=== PATIENT | male | born 1945 | race Caucasian/White ===

== ENCOUNTER 2020-11-29 08:26 | Outpatient (CLI) | payer MEDICARE, MEDICAID, SELFPAY | END 2020-11-29 08:27 | disposition home or self-care (01) | LOC: WOUND 08:49 | PROVIDERS: Visit Provider Thoracic Surgery (Cardiothoracic Vascular Surgery) | DX: L97.522 Non-pressure chronic ulcer of other part of left foot with fat layer exposed (principal); F17.210 Nicotine dependence, cigarettes, uncomplicated | CPT/HCPCS: 11042; 73630; G0463 ==

== ENCOUNTER 2020-11-29 10:28 | Outpatient (CLI) | payer MEDICARE, MEDICAID, SELFPAY ==
--- NOTE | 2020-11-29 10:40 | XR_ITS ---
WS: [id number] Left foot, 3 views, 11/29/2020 Clinical Data: NON PRESSURE CHRONIC ULCER Comparison: None. Findings: No fractures or dislocations are seen. No bone destruction or erosion is noted. The joint spaces and soft tissues are normal. No fistulous tract is seen adjacent to the left great toe. There is a large plantar spur and a small Achilles spur. There are calcifications and small vessels. XR/XR foot LT min 3V* [id number] Impression: Negative left foot.
== END 2020-11-29 10:29 | disposition home or self-care (01) ==
PROVIDERS: PCP Nurse Practitioner Family; Visit Provider Thoracic Surgery (Cardiothoracic Vascular Surgery)
DX: L97.522 Non-pressure chronic ulcer of other part of left foot with fat layer exposed (principal)
CPT/HCPCS: 73630

== ENCOUNTER 2020-12-06 08:39 | Outpatient (CLI) | payer MEDICARE, MEDICAID, SELFPAY | END 2020-12-06 08:40 | disposition home or self-care (01) | LOC: WOUND 08:40 | PROVIDERS: PCP Nurse Practitioner Family; Visit Provider Thoracic Surgery (Cardiothoracic Vascular Surgery) | DX: E11.621 Type 2 diabetes mellitus with foot ulcer (principal); L97.522 Non-pressure chronic ulcer of other part of left foot with fat layer exposed; F17.210 Nicotine dependence, cigarettes, uncomplicated | CPT/HCPCS: 11042 ==

== ENCOUNTER 2020-12-13 08:50 | Outpatient (CLI) | payer MEDICARE, MEDICAID, SELFPAY | END 2020-12-13 08:51 | disposition home or self-care (01) | LOC: WOUND 08:51 | PROVIDERS: PCP Nurse Practitioner Family; Visit Provider Thoracic Surgery (Cardiothoracic Vascular Surgery) | DX: L97.522 Non-pressure chronic ulcer of other part of left foot with fat layer exposed (principal); F17.210 Nicotine dependence, cigarettes, uncomplicated | CPT/HCPCS: 11042 ==

== ENCOUNTER 2020-12-14 08:28 | Outpatient (CLI) | payer MEDICARE, MEDICAID, SELFPAY ==
--- NOTE | 2020-12-14 08:38 | USCV_ITS ---
Viktor Trujillo Age: 75 Gender: M : 1945 Exam Date: 12/14/2020 08:49 Ordering Phys: Vince Oliveira MD (Andy) ([email or web address]) Technologist: KAYLA Exam Location: [facility] [place] Indication: ULCER Risk Factors: Previous Vascular Surgery: RIGHT LEFT Waveform Velocity (cm/s) Velocity (cm/s) Waveform Iliac Prox Triphasic 100.4 Iliac Mid 97.8 Triphasic Iliac Distal 93.0 Monophasic PICKER 91.4 Monophasic SFA Prox 67.5 Monophasic SFA Mid 71.8 Monophasic SFA Dist Monophasic 70.1 POP 47.9 Monophasic GRAVEL WEIGHER 106.0 Monophasic DPA 36.8 Monophasic PEGGY 0.8 FINDINGS Abnormal resting PEGGY 0.8 on the left side. Monophasic and continuous waveforms in the posterior tibial and dorsalis pedis artery on the left side Moderate diffuse plaques in the iliac, femoral and popliteal arteries on the left side CONCLUSIONS 1. Abnormal resting PEGGY on the left side, suggestive of mild peripheral artery disease 2. Abnormal Doppler waveforms in the infrapopliteal vessels, suggestive of collateral filling Consider CTA or peripheral angiogram to better evaluate the peripheral arteries,, if clinically indicated Dr Humza Huertas MD [facility] (Electronically Signed) Final Date: 14 December 2020 10:11 S
== END 2020-12-14 08:29 | disposition home or self-care (01) ==
LOC: US 08:29
PROVIDERS: PCP Nurse Practitioner Family; Visit Provider Thoracic Surgery (Cardiothoracic Vascular Surgery)
DX: L97.522 Non-pressure chronic ulcer of other part of left foot with fat layer exposed (principal)
CPT/HCPCS: 93926

== ENCOUNTER 2020-12-20 09:01 | Outpatient (CLI) | payer MEDICARE, MEDICAID, SELFPAY | END 2020-12-20 09:02 | disposition home or self-care (01) | LOC: WOUND 09:02 | PROVIDERS: PCP Nurse Practitioner Family; Visit Provider Thoracic Surgery (Cardiothoracic Vascular Surgery) | DX: L97.522 Non-pressure chronic ulcer of other part of left foot with fat layer exposed (principal); F17.210 Nicotine dependence, cigarettes, uncomplicated | CPT/HCPCS: 11042 ==

== ENCOUNTER 2020-12-27 08:32 | Outpatient (CLI) | payer MEDICARE, MEDICAID, SELFPAY | END 2020-12-27 08:33 | disposition home or self-care (01) | LOC: WOUND 08:33 | PROVIDERS: PCP Nurse Practitioner Family; Visit Provider Thoracic Surgery (Cardiothoracic Vascular Surgery) | DX: L97.522 Non-pressure chronic ulcer of other part of left foot with fat layer exposed (principal); F17.210 Nicotine dependence, cigarettes, uncomplicated | CPT/HCPCS: 11042 ==

== ENCOUNTER 2021-01-10 08:47 | Outpatient (CLI) | payer MEDICARE, MEDICAID, SELFPAY | END 2021-01-10 08:48 | disposition home or self-care (01) | LOC: WOUND 08:48 | PROVIDERS: PCP Nurse Practitioner Family; Visit Provider Thoracic Surgery (Cardiothoracic Vascular Surgery) | DX: L97.522 Non-pressure chronic ulcer of other part of left foot with fat layer exposed (principal); F17.210 Nicotine dependence, cigarettes, uncomplicated | CPT/HCPCS: 11042 ==

== ENCOUNTER 2021-01-17 09:10 | Outpatient (CLI) | payer MEDICARE, MEDICAID, SELFPAY | END 2021-01-17 09:11 | disposition home or self-care (01) | LOC: WOUND 09:11 | PROVIDERS: PCP Nurse Practitioner Family; Visit Provider Nurse Practitioner Family | DX: L97.522 Non-pressure chronic ulcer of other part of left foot with fat layer exposed (principal); F17.210 Nicotine dependence, cigarettes, uncomplicated | CPT/HCPCS: 11042; 87070; 87077; 87176; 87186; 87205 ==

== ENCOUNTER → 2021-01-27 10:53 | Outpatient (BNVA) | payer MEDICARE, MEDICAID, SELFPAY | PROVIDERS: Visit Provider Internal Medicine | DX: Z01.818 Encounter for other preprocedural examination (principal); Z20.822 Contact with and (suspected) exposure to COVID-19; I74.09 Other arterial embolism and thrombosis of abdominal aorta | CPT/HCPCS: 80048; 85025; 85610; 87635 ==

== ENCOUNTER 2021-01-31 08:25 | Outpatient (CLI) | payer MEDICARE, MEDICAID, SELFPAY ==
[2021-01-31] VITALS (45 sets, daily range): BP systolic 110–165; BP diastolic 61–106; PULSE 39–65; RESP 11–54; TEMP 36.1–36.9; O2SAT 93–98; BMI 30.5
--- NOTE | 2021-01-31 08:57 | XACV_ITS ---
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 Lower Extremity Diagnostic Findings Indication: Severe lifestyle limiting claudication/nonhealing ulcer. Left common iliac artery: Patent Left external iliac artery: Patent Left internal iliac artery: Patent Left common femoral artery: Patent Left profunda femoral artery: Patent Left SFA: Mid to distal segment has severe 80 to 90% calcified stenosis Left popliteal artery: Patent TP segment: Patent Anterior tibial artery: Occluded with collateral filling Posterior tibial artery: Patent Peroneal artery: Diffusely diseased. Right common iliac artery: Patent Right external iliac artery: Patent Right internal iliac artery: Patent Right common femoral artery: Patent Right profunda femoral artery: Patent Right SFA: Patent Right popliteal artery: Patent TP segment: Patent Diffuse narrowing seen in the below the knee vessels. o critical stenosis noted. Lower Extremity Interventional Findings Procedure detail: We obtained access in the right common femoral artery. Sheath was exchanged to long 6 Upper Sorbian sheath. Using Glidewire, the SFA stenosis was crossed. With seeker support catheter wire was exchanged to a Viper wire. Orbital arthrectomy was performed. This was followed by balloon angioplasty with 6.0 x 40 mm balloon. At this time we obtained final angiogram that showed excellent 2 vessel expansion and no residual stenosis. 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 Conclusions Severe mid to distal left SFA stenosis s/p successful revascularization with orbital arthrectomy and balloon angioplasty. Recommendations Transferred to CSU. Aspirin and Plavix. Statin therapy. Outpatient cardiology follow-up in 4 weeks. Hemodynamic Data Phase:Rest AO : 143.0 / 77.0 ( 105.0 ) @ 8:06:00 AM 132.0 / 72.0 ( 100.0 ) @ 8:32:00 AM 137.0 / 66.0 ( 92.0 ) @ 8:35:00 AM Access Site Site: Right Femoral artery Sheath Size: 6 Fr Hemost... Method: Suture Hemost... Success: Successful Procedure Details Findings Procedure Consent Obtained. Admit Source: Out Patient. Pre-Procedure Time Out. Identified patient by full name and date of as verbalized by the patient/guarantor. Does the consent match the physician's order: Yes. Accurate & Complete Informed Consent: Yes. Inpatient/Outpatient History & Physical on Chart: Yes. Visualize and Verify Site with Patient/Guarantor: N/A. Relevant Radiology Images available: N/A. Pre-op teaching completed and patient verbalized understanding. The risks, benefits, and alternatives of sedation and/or procedure were discussed by physician. The patient agrees to continue. Procedure started. Current diagnosis: PVD. PERRLA. Strong, equal hand grey washer bilaterally. Lungs clear x 5 lobes. IV Site on Arrival: 20 gauge in the left wrist. IV Fluids: 0.9% NaCl at KVO. 0 mL infused prior to landscape and yardwork laborer. Pre Procedural Pulses: bilateral dorsalis pedis was Doppled. Pre Procedural Pulses: bilateral posterior tibial was Doppled. Oxygen started at 2liters/min via nasal canula. right groin was prepped with chloroprep then draped in the usual sterile fashion. left groin was prepped with chloroprep then draped in the usual sterile fashion. Baseline sample Acquired. HR: 74 BPM. Physician notified. Physician arrived. Physician scrubbed in. Time out performed with cath team. Lidocaine 1% infiltrated to the right groin. Arterial access obtained with micropuncture set. A 5FrFr UF catheter in over wire. Abdominal aortogram performed in ENRIQUE @ 10 mL/sec for a total of 30 mL. Glidewire inserted. Glidewire removed. Left superficial femoral selected and arteriogram with runoff performed @ 10 mL/sec for a total of 30 mL. Glidewire inserted. UF catheter removed. 6Fr short sheath exchanged for 6Fr Flexor sheath. Seeker catheter inserted over the Glidewire. Glidewire removed. Hand injection through the sheath. Viper wire inserted. Orbital atherectomy device inserted. Orbial atherectomy performed to Mid SFA. Orbital atherectomy device removed. Viper wire removed. Seeker and [place] wire inserted. Inflation number : 1 A AB ARMADA 35 OTW [id number] was prepped and advanced across the Mid Superficial Femoral, Left , then inflated to 6 MARYLOU for 2:00 seconds. Balloon inserted over the wire to the superficial femoral. Balloon out. Results checked. 6Fr Flexor exchanged for 6Fr short sheath. Sheath injected in Right common femoral artery and runoff performed. A Suture was successful obtaining hemostatsis at the Right Femoral artery insertion site. Post Procedure: Pulses reassessed and unchanged. Post-op diagnosis: Severe Distal SFA stenosis. PERRLA. Strong, equal hand grey washer bilaterally. No VTE prophylaxis required. Medication's Wasted: Lidocaine 1% = 10 mL. Medication's Wasted: Nitro = 49 mg. Medication's Wasted: Heparin = 1000 u. Total IV fluids: 120 mL. Complications: none. Estimated blood loss: 5mL-10mL. Procedure completed. Patient transferred by bed to 1st floor. Vital chart was stopped. Procedure Medications Start: 9:52 AM Stop: 9:52 AM Medication: Versed Amount: 1 mg Route: I.V. Start: 9:52 AM Stop: 9:52 AM Medication: Fentanyl Amount: 50 mcg Route: I.V. Start: 10:00 AM Stop: 10:00 AM Medication: Versed Amount: 1 mg Route: I.V. Start: 10:00 AM Stop: 10:00 AM Medication: Fentanyl Amount: 50 mcg Route: I.V. Start: 10:03 AM Stop: 10:03 AM Medication: Versed Amount: 1 mg Route: I.V. Start: 10:03 AM Stop: 10:03 AM Medication: Fentanyl Amount: 50 mcg Route: I.V. Start: 10:22 AM Stop: 10:22 AM Medication: Heparin Amount: 5000 units Route: I.V. Start: 10:30 AM Stop: 10:30 AM Medication: Fentanyl Amount: 50 mcg Route: I.V. Start: 10:30 AM Stop: 10:30 AM Medication: Versed Amount: 1 mg Route: I.V. I, the attending physician, have reviewed and verified all procedure medications. Yes, all medications given per verbal order History/Risk Factors Hypertension: Yes Dyslipidemia: No Peripheral Arterial Disease (PAD): Yes Obesity: Yes Renal Disease: No Tobacco Use: Current/Recent(w/in 1 year) Prior Interventions PCI: No CABG: No Valve Surgery: No Report Signatures Finalized by Daljit Bateman MD on 02/15/2021 08:09 AM
--- NOTE | 2021-01-31 09:45 | W.PM.OPSUD ---
Surgery/Procedure H&P Update DATE OF PROCEDURE: January 31, 2021 DATE H&P PERFORMED: 01/09/21 H&P UPDATE INFORMATION: I have reviewed H&P completed within last 30 days, I have examined patient prior to procedure and No changes to prior documentation PREOP DIAGNOSIS: Non healing ulcer/Peripheral artery disease PRIMARY INDICATION FOR PROCEDURE: Non healing ulcer/peripheral artery disease PLANNED PROCEDURE: Operation Date: 01/31/21 08:30 Proposed Procedures p Peripheral Diagnostic(Bilateral) - Daljit Bateman M.D Possible percutaneous coronary intervention PATIENT REASSESSED PRIOR TO SEDATION, WITH NO CHANGE NOTED: Yes PHYSICAL EXAM: alert, oriented x 3, clear to auscultation bilaterally and regular rate & rhythm AIRWAY EVAL/ANESTHESIA PLAN: ASA III, Monitored Anesthesia, Local Anesthesia, Risks, benefits & alternatives of sedation and/or procedure discussed and Patient agrees to continue as planned
[2021-01-31] MEDS: sodium chloride 0.9% 1,000 ML 75 ML IV (11:15)
--- NOTE | 2021-01-31 11:28 | ECG_ITS ---
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 Measurements Intervals [place] Rate: 40 P: 57 MD: 194 QRS: -27 QRSD: 99 T: -6 QT: 498 QTc: 408 Interpretive Statements SINUS BRADYCARDIA BORDERLINE LEFT AXIS DEVIATION [QRS AXIS < -20] NONSPECIFIC T-WAVE ABNORMALITY No previous ECG available for comparison Electronically Signed On 02-01-2021 17:45:59 ELECTRONICS MAINTENANCE TECHNICIAN by Daljit Bateman M.D. [email or web address]
[2021-01-31] MEDS: clopidogrel 300 mg Tablet PO (12:33)
[2021-01-31] MEDS: aspirin 325 mg Tablet PO (12:33)
--- NOTE | 2021-01-31 12:49 | PC.NURSE ---
received from cardiac director of cardiac cath lab at 1115.report received.pt is drowsy but easily awakened.sb on monitor.right femoral arterial sheath intact to pressurized system.right groin drsg is dry and intact.no hematoma noted.right leg is warm to touch.right and left dp and pt pulses are dopplerable.instructed in activity restrictions s/p femoral artery procedure...and instructed to notify staff for any bleeding,pain,numbness..or for any concern at all.pt verb understanding of instructions.
[2021-01-31 14:58] LABS: Partial Thromboplastin Time 33.7 SECONDS (23.9-36.7)
[2021-01-31] MEDS: fentaNYL 50 mcg/mL INJ 2mL IVP (15:54)
--- NOTE | 2021-01-31 16:32 | PC.NURSE ---
50 mcg fentanyl given prior to sheath pull.right femoral arterial sheath pulled at 1603.manual pressure applied x 20 min.vss through-out procedure.noo hematoma formation noted.site dressed with 2x2 gauze and secured with biocclusive drsg.pt instructed in activity restrictions s/p sheath pull..and instructed to notify staff for any bleeding,pain,numbness..or for any concerns at all.pt verb understanding of instructions
--- NOTE | 2021-02-01 00:44 | PC.NURSE ---
Patient ambulated in key with nurse. Patient slightly unsteady on feet. Patient states, i have been wobbly since I broke my leg several years ago. Right groin site WNL. Distal pulses weak, but present by doppler. Dressing to left great toe changed per patient request with supplies patient brought from home. Patient states, it typically gets changed every 12 hours.
[2021-02-01] MEDS: acetaminophen 325 mg Tablet 650 MG PO (00:48)
[2021-02-01 03:02] LABS: Basophils # 0.1 10^3/uL (0.0-0.1); Basophils % 0.7 %; Eosinophils # 0.3 10^3/uL (0.0-0.8); Eosinophils % 3.4 %; Hematocrit 38.8 % (42.0-52.0); Hemoglobin 12.1 g/dL (11.7-16.6); Lymphocytes # 1.9 10^3/uL (0.8-4.8); Lymphocytes % 19.1 %; Mean Corpuscular HGB Conc 31.2 g/dL (30.0-36.0); Mean Corpuscular Hemoglobin 30.7 pg (28.0-34.0); Mean Corpuscular Volume 98.5 fl (80-94); Mean Platelet Volume 11.8 fL (7.4-10.4); Monocytes # 0.8 10^3/uL (0.2-0.9); Monocytes % 7.5 %; Neutrophils # 6.86 10^3/uL (1.8-7.7); Nucleated Red Blood Cells % 0 %; Platelet Count 201 10^3/cmm (130-400); Red Blood Count 3.94 10^6/uL (4.1-5.3); Red Cell Distribution Width 14.1 % (12.1-15.1)
[2021-02-01 03:07] VITALS: BP 153/77; PULSE 49; RESP 17; TEMP 36.6; O2SAT 97
[2021-02-01 03:27] VITALS: PULSE 45
[2021-02-01 03:30] LABS: Blood Urea Nitrogen 21 mg/dL (8-23); Calcium 8.1 mg/dL (8.5-10.5); Carbon Dioxide 24 mmol/L (22-29); Chloride 106 mmol/L (98-107); Glucose 96 mg/dL (65-115); Osmolality Calculated 289 mOsm/kg (285-295); Sodium 138 mmol/L (136-145)
--- NOTE | 2021-02-01 07:03 | PM.SDS ---
Short Stay Summary Providers Date of Admit/Discharge: 01/31/21 Attending Provider: Daljit Bateman M.D Primary Care Provider: Carlos Alberto Dickerson Chief Complaint: 30766 I73.9 HPI History of Present Illness Viktor Trujillo is a 75 year old male with no significant cardiac history has been referred by Dr Oliveira for left foot great toe non healing ulcer and abnormal PEGGY, Present for the last 3 months. Patient has leg cramping on exertion more on left side. BP is elevated. Patient continues to smoke. Patient is here for peripheral angiogram with possible intervention Review of Systems Const: Denies: fever(s), chills, body aches or fatigue ENMT: Denies: throat pain, nasal discharge or nasal congestion Card: Reports: swelling of feet/ankles (slight); Denies: chest pain, palpitations, irregular heart rhythm, lightheadedness, syncope, pre-syncope, dyspnea on exertion, orthopnea, leg pain with exertion or acrocyanosis Resp: Denies: dyspnea, productive cough, non-productive cough, wheezing, hemoptysis or chest congestion GI: Denies: nausea, vomiting, diarrhea, hematochezia or melena : Denies: difficulty urinating Musc: Reports: neck pain and extremity swelling; Denies: back pain or muscle cramps Skin/Breast: Reports: sores Neuro: Reports: numbness in extremities (left leg occ); Denies: weakness in extremities, frequent falls or dizziness Psych: Denies: anxiety, depression, suicidal ideation or homicidal ideation Endo: Denies: polyuria or polydipsia Jos/Lymph: Reports: easy bruising; Denies: easy bleeding All/Imm: Denies: urticaria or throat swelling Home Meds/Allergies Home Medications and Allergies Home Medications Medication Instructions Recorded Confirmed Type ibuprofen 800 mg PO Q8H PRN 01/31/21 02/14/21 History oxycodone-acetaminophen 1 tab PO Q4H PRN 01/31/21 02/14/21 History Allergies Allergy/AdvReac Type Severity Reaction Status Date / Time No Known Allergies Allergy Unverified 02/14/21 15:06 PFSH Acute PFSH: Social History Alcohol intake: never Substance/Drug Use: current Substance/Drug use type: Marijuana Other substance/drug use details: daily Vitals/I&O/Wt Last Vital Signs Temp 98 F 02/01/21 03:07 Pulse 45 L 02/01/21 03:27 Resp 17 02/01/21 03:07 BP 153/77 02/01/21 03:07 Pulse Ox 97 02/01/21 03:07 01/31/21 02/01/21 02/01/21 22:59 06:59 14:59 Intake Total 1520.0 / 1760.0 Output Total 200 / 400 550 / 950 Balance 1320.0 / 1360.0 -550 / 810.0 Weight last 48 hrs Weight 225 lb Physical Exam Narrative: EXAM NARRATIVE: GENERAL: Patient is alert, awake and oriented x3. [] NECK: No jugular vein distension. [] HEENT: No cyanosis. No icterus. No pallor. [] HEART: Regular S1 and S2. No murmur, rub or gallop. [] LUNGS: Clear to auscultate bilaterally. [] ABDOMEN: Soft, nontender and nondistended. Positive bowel sounds. No guarding, rebound or tenderness. [] CENTRAL NERVOUS SYSTEM: Grossly nonfocal. [] EXTREMITIES: Lower extremities with 1+ edema bilaterally. Pulses palpable in the lower extremities, both dorsalis pedis and posterior tibial. [] Hospital Course Hospital Course 75-year-old man with no significant cardiac history has been referred by Dr Oliveira for left foot great toe non healing ulcer and abnormal ABIl, Present for the last 3month. Patient has leg cramping on exertion more on left side. BP is elevated. Patient continues to smoke. Patient underwent peripheral angiogram that showed severe mid to distal SFA stenosis. He underwent successful revascularization with orbital arthrectomy and balloon angioplasty. He stayed overnight and did well. He is going to be discharged on aspirin and Plavix SSS Data Data Completed and Pending: Pending at discharge Category Date Time Status TRANSMISSION AND COORDINATION ENGINEER request for service Routin e Exams 01/31/21 08:57 Taken Discharge Plan Discharge Patient Disposition: Home Prescriptions: Continued oxycodone-acetaminophen 5-325 mg tablet 1 tab PO Q4H PRN (Reason: Pain) RF: 0 ibuprofen 800 mg tablet 800 mg PO Q8H PRN (Reason: Pain) RF: 0 No Action Aspirin Low Dose 81 mg tablet,delayed release (DR/EC) 81 mg PO DAILY Qty: 90 RF: 3 clopidogrel 75 mg tablet 75 mg PO DAILY Qty: 90 RF: 3 Discharge Orders: Discharge Order (Routine); Ordered 02/01/21 Ordered By: Daljit Bateman Referrals: Daljit Bateman M.D [Physician] - 1 month (You have an appointment with Dr. Bateman on Saturday, 03/06, at 3:00pm. If you have any questions or concerns please call the office. ) Elizabeth Chandler FNP [Nurse Practitioner] - 7-10 days (You have a hospital follow up with Elizabeth Chandler on Saturday, February 08, at 9:30am. If you have any questions or concerns please call the office. ) Diet: Cardiac Activity: Increase activity as tolerated Patient Instructions: Aspirin (By mouth), Midazolam (By injection), Clopidogrel (By mouth), Fentanyl (By injection), Moderate Sedation (DC), Peripheral Vascular Angioplasty (DC), Post Angiogram Home Care Instructions Activity Restrictions/Additional Instructions: Please do not lift more than 5 pounds of weight for the next 5 days Discharge Date/Time: 02/01/21 10:04 Attestations Medical Necessity Statement*: Care not expected to cross 2 midnights. Time Spent in Patient Care*: less than 30 min Quality Metrics Clinical Quality Measures: During this hospital stay, did patient experience: None Coding Level of Care Code Acute Replenishment Specialist for Flaca Nelson
[2021-02-01 07:50] VITALS: BP 153/77; PULSE 52; RESP 18; TEMP 36.6; O2SAT 95
--- NOTE | 2021-02-01 09:51 | PC.CHAP ---
Pastoral Care Encounter/Spiritual Assessment Type of Contact [] Declined data base design analyst visit [] Patient/Family/Request visit [] Outpatient visit [] Follow-up visit [] Physician referral [] Code/Alert [x] Routine visit [] Staff referral [] Actively dying [] Patient sleeping [] Family support [] [] Out of room [] Palliative care [] [] Receiving care in room [] Pre-surgical visit [] Trauma [] Long length of stay [] ICU visit [] Other: Relational/Emotional Strength [] Patient feels connected with others/family/visitors/staff [] Distress [] Loneliness/isolation [] Abandonment Spirituality of Patient [x] Person of [place] [] Attends Mandaen of their [place] [] Believes in Prayer [] Reads Bible or Taoism materials [] There are Spiritual issues to be addressed Control Inspector Interventions [x] Prayer [x] Active listening [x] Non-anxious presence [x] Spiritual/emotional support [] Crisis/trauma care [] Spiritual counseling [] Bereavement support [] Provided bereavement packet [] Provided Bible/devotional materials [] Provided toy/stuffed animal, coloring book to patient or family member [] Provided Communion [] Anointing/[place] [] Salvation [x] Completed spiritual assessment [] Other: Impact on Illness or Injury [] Angry [] Fearful [] Anxious [] Often cries [] Exhaustion [] Unable to work [] Unable to attend mormonism [] Unable to walk/stand [] Unable to read [] Unable to drive [] Unable to eat/drink [] Unable to sleep [] Unable to be with family [] Patient intubated [] Other: Summary patient prepared for discharge... shared his testimony... Time spent with patient 5 min
--- NOTE | 2021-02-01 10:03 | PC.NURSE ---
Patient education provided, VS stable upon departure. No questions or concers. Follow up appointments were made.
== END 2021-02-01 10:04 | disposition home or self-care (01) ==
LOC: CCL 09:27 → CSU 11:28
PROVIDERS: PCP Nurse Practitioner Family; Visit Provider Internal Medicine
DX: L98.499 Non-pressure chronic ulcer of skin of other sites with unspecified severity (principal); I10 Essential (primary) hypertension; R00.1 Bradycardia, unspecified; R94.31 Abnormal electrocardiogram [ECG] [EKG]; I70.222 Atherosclerosis of native arteries of extremities with rest pain, left leg; F17.200 Nicotine dependence, unspecified, uncomplicated; L97.522 Non-pressure chronic ulcer of other part of left foot with fat layer exposed
CPT/HCPCS: 36415; 37225; 75625; 75716; 80048; 85025; 85730; 93005; C1724; C1725; C1769; C1887; C1894; J1644; J2250; J3010; J3490; J7030; Q0163; Q9967

== ENCOUNTER → 2021-02-14 15:44 | Outpatient (BNVA) | payer MEDICARE, MEDICAID, SELFPAY | PROVIDERS: PCP Nurse Practitioner Family; Visit Provider Nurse Practitioner Family | DX: I73.9 Peripheral vascular disease, unspecified (principal) | CPT/HCPCS: 80048 ==

== ENCOUNTER 2021-02-28 09:11 | Outpatient (CLI) | payer MEDICARE, MEDICAID, SELFPAY | END 2021-02-28 09:12 | disposition home or self-care (01) | LOC: WOUND 09:12 | PROVIDERS: PCP Nurse Practitioner Family; Visit Provider Nurse Practitioner Family | DX: I96 Gangrene, not elsewhere classified (principal); S91.122A Laceration with foreign body of left great toe without damage to nail, initial encounter; W25.XXXA Contact with sharp glass, initial encounter; F17.210 Nicotine dependence, cigarettes, uncomplicated | CPT/HCPCS: 11042 ==

== ENCOUNTER 2021-03-06 10:48 | Outpatient (CLI) | payer MEDICARE, MEDICAID, SELFPAY | END 2021-03-06 10:49 | disposition home or self-care (01) | LOC: WOUND 10:49 | PROVIDERS: PCP Nurse Practitioner Family; Visit Provider Nurse Practitioner Family | DX: S91.122A Laceration with foreign body of left great toe without damage to nail, initial encounter (principal); W25.XXXA Contact with sharp glass, initial encounter; F17.210 Nicotine dependence, cigarettes, uncomplicated | CPT/HCPCS: 11042 ==

== ENCOUNTER 2021-05-17 09:37 | Outpatient (CLI) | payer MEDICARE, MEDICAID, SELFPAY | END 2021-05-17 09:38 | disposition home or self-care (01) | LOC: WOUND 09:38 | PROVIDERS: PCP Nurse Practitioner Family; Visit Provider Thoracic Surgery (Cardiothoracic Vascular Surgery) | DX: Z09 Encounter for follow-up examination after completed treatment for conditions other than malignant neoplasm (principal); F17.210 Nicotine dependence, cigarettes, uncomplicated; L97.428 Non-pressure chronic ulcer of left heel and midfoot with other specified severity | CPT/HCPCS: 99213 ==

== ENCOUNTER → 2022-02-21 13:09 | Outpatient (BNVA) | payer MEDICARE, MEDICAID, SELFPAY | PROVIDERS: PCP Nurse Practitioner Family; Visit Provider Podiatrist Foot & Ankle Surgery | DX: I73.9 Peripheral vascular disease, unspecified (principal); B35.1 Tinea unguium | CPT/HCPCS: 11721; 99204 ==

== ENCOUNTER → 2022-05-16 13:05 | Outpatient (BNVA) | payer MEDICARE, MEDICAID, SELFPAY | PROVIDERS: PCP Nurse Practitioner Family; Visit Provider Podiatrist Foot & Ankle Surgery | DX: B35.1 Tinea unguium (principal); I73.9 Peripheral vascular disease, unspecified | CPT/HCPCS: 11721 ==

== ENCOUNTER → 2022-07-25 12:56 | Outpatient (BNVA) | payer MEDICARE, MEDICAID, SELFPAY | PROVIDERS: PCP Nurse Practitioner Family; Visit Provider Podiatrist Foot & Ankle Surgery | DX: E11.8 Type 2 diabetes mellitus with unspecified complications (principal); B35.1 Tinea unguium; I73.9 Peripheral vascular disease, unspecified | CPT/HCPCS: 11721 ==

== ENCOUNTER → 2022-08-15 12:36 | Outpatient (BNVA) | payer MEDICARE, MEDICAID, SELFPAY | PROVIDERS: PCP Nurse Practitioner Family; Visit Provider Internal Medicine | DX: I73.9 Peripheral vascular disease, unspecified (principal); I10 Essential (primary) hypertension; F17.210 Nicotine dependence, cigarettes, uncomplicated | CPT/HCPCS: 99214 ==

== ENCOUNTER → 2023-11-20 12:43 | Outpatient (BNVA) | payer MEDICARE, MEDICAID, SELFPAY | PROVIDERS: PCP Nurse Practitioner Family; Referring Provider Family Medicine; Visit Provider Nurse Practitioner | DX: M17.32 Unilateral post-traumatic osteoarthritis, left knee (principal) | CPT/HCPCS: 73560; 73565 ==

== ENCOUNTER 2023-11-20 14:14 | Outpatient (CLI) | payer MEDICARE, MEDICAID, SELFPAY | END 2023-11-20 14:15 | disposition home or self-care (01) | LOC: SPT 14:19 | PROVIDERS: PCP Nurse Practitioner Family; Visit Provider Nurse Practitioner | DX: M17.12 Unilateral primary osteoarthritis, left knee (principal); T84.84XA Pain due to internal orthopedic prosthetic devices, implants and grafts, initial encounter; X58.XXXA Exposure to other specified factors, initial encounter | CPT/HCPCS: 99204; L1812 ==

== ENCOUNTER 2024-01-15 14:26 | Outpatient (CLI) | payer MEDICARE, MEDICAID, SELFPAY | END 2024-01-15 14:27 | disposition home or self-care (01) | LOC: SPT 14:28 | PROVIDERS: PCP Nurse Practitioner Family; Visit Provider Nurse Practitioner | DX: Z46.89 Encounter for fitting and adjustment of other specified devices (principal); M25.562 Pain in left knee; M17.12 Unilateral primary osteoarthritis, left knee | CPT/HCPCS: 97760; L1851 ==

== ENCOUNTER → 2024-06-29 10:54 | Outpatient (BNVA) | payer MEDICARE, MEDICAID, SELFPAY | PROVIDERS: PCP Nurse Practitioner Family; Visit Provider Nurse Practitioner | DX: M17.12 Unilateral primary osteoarthritis, left knee (principal); T84.84XA Pain due to internal orthopedic prosthetic devices, implants and grafts, initial encounter; R03.0 Elevated blood-pressure reading, without diagnosis of hypertension; X58.XXXA Exposure to other specified factors, initial encounter | CPT/HCPCS: 20610; 99214; J1100; J2795; J3301; J9999 ==

== ENCOUNTER → 2024-07-01 10:13 | Outpatient (BNVA) | payer MEDICARE, MEDICAID, SELFPAY | PROVIDERS: PCP Nurse Practitioner Family; Visit Provider Internal Medicine | DX: I73.9 Peripheral vascular disease, unspecified (principal); I10 Essential (primary) hypertension; Z79.01 Long term (current) use of anticoagulants; Z79.82 Long term (current) use of aspirin; Z72.0 Tobacco use | CPT/HCPCS: 99213 ==

== ENCOUNTER → 2024-07-06 11:09 | Outpatient (BNVA) | payer MEDICARE, MEDICAID, SELFPAY | PROVIDERS: PCP Nurse Practitioner Family; Visit Provider Nurse Practitioner | DX: M17.11 Unilateral primary osteoarthritis, right knee (principal) | CPT/HCPCS: 20610; 73560; 73565; 99214; J1100; J2795; J3301; J9999 ==

== ENCOUNTER → 2024-10-12 10:05 | Outpatient (BNVA) | payer MEDICARE, MEDICAID, SELFPAY | PROVIDERS: PCP Nurse Practitioner Family; Visit Provider Nurse Practitioner | DX: M17.0 Bilateral primary osteoarthritis of knee (principal) | CPT/HCPCS: 20610; J1100; J2795; J3301; J9999 ==